=== PATIENT | male | born 1970 | race Caucasian/White ===

== ENCOUNTER 2017-11-12 20:45 | Emergency (ER) | payer MEDICAID ==
[~2017-11-12] VITALS: Ht 165.1 cm; Wt 75.1 kg
[2017-11-12 21:34] VITALS: BP 149/65
--- NOTE | 2017-11-12 21:40 | NUR ---
TO JACOB SCHULTZ STABLE, A/W BED AND FOR XRAY, NANCY NOTED
[2017-11-12 21:41] VITALS: BP 149/65
--- NOTE | 2017-11-12 23:10 | NUR ---
PATIENT LEFT WITHOUT BEING SEEN BY DR. PATTON. NO FURTHER CARE PROVIDED FOR PATIENT.
== END 2017-11-12 23:10 | disposition left against medical advice (07) ==
LOC: MED 20:45
DX: Z04.1 Encounter for examination and observation following transport accident (principal); Z53.21 Procedure and treatment not carried out due to patient leaving prior to being seen by health care provider
CPT/HCPCS: 73110; 73130; 99281